=== PATIENT | male | born 1980 | race Caucasian/White ===

== ENCOUNTER 2017-02-25 17:42 | Emergency (ER) | payer SELFPAY ==
[2017-02-25 18:23] VITALS: BP 117/84
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
== END 2017-02-25 20:21 | disposition home or self-care (01) ==
LOC: ED 17:42
DX: T14.8 Other injury of unspecified body region (principal); W57.XXXA Bitten or stung by nonvenomous insect and other nonvenomous arthropods, initial encounter; Y92.9 Unspecified place or not applicable
CPT/HCPCS: 99281

== ENCOUNTER 2017-03-07 14:25 | Emergency (ER) | payer SELFPAY ==
[2017-03-07] MEDS ORDERED: Ketorolac INJ* 30 MG/ML 1 ML VIAL IM ONE (15:21)
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
--- NOTE | 2017-03-07 16:22 | RAD ---
INDICATION: Left shoulder pain COMPARISON: None. TECHNIQUE: 4 views of the left shoulder were obtained. FINDINGS: The adequately corticated bones are in normal alignment. Joint spaces appear maintained. No fracture, dislocation or focal bony abnormality is seen. IMPRESSION: Normal radiograph of the left shoulder. If the patient's symptoms persist, follow-up imaging is recommended.
--- NOTE | 2017-03-07 16:23 | RAD ---
INDICATION: Low back pain after a fall COMPARISON: CT abdomen and pelvis September 01, 2014 TECHNIQUE: 5 views of the lumbar spine were obtained. FINDINGS: The vertebra are in normal alignment. No fracture is seen. Disc spaces appear maintained. . IMPRESSION: No evidence of fracture or subluxation.
[2017-03-07] MEDS ORDERED: HYDROcodone/ACETAMIN 5-325 MG* 1 TAB PO ONE (16:34)
[2017-03-07 16:53] VITALS: BP 111/71
== END 2017-03-07 16:45 | disposition home or self-care (01) ==
LOC: UCEAST 14:25
DX: G89.29 Other chronic pain (principal); M25.512 Pain in left shoulder; S39.012A Strain of muscle, fascia and tendon of lower back, initial encounter; W18.30XA Fall on same level, unspecified, initial encounter; Y93.9 Activity, unspecified; Y92.009 Unspecified place in unspecified non-institutional (private) residence as the place of occurrence of the external cause; Y99.9 Unspecified external cause status; M79.1 Myalgia; R03.0 Elevated blood-pressure reading, without diagnosis of hypertension; Z72.0 Tobacco use
CPT/HCPCS: 72110; 90471; 96372; 99212; G0463; J1885

== ENCOUNTER 2017-04-08 18:51 | Emergency (ER) | payer OTHER ==
[2017-04-08] MEDS ORDERED: Ondansetron INJ* 2 MG/ML VIAL IV ONE ×2 (19:45→22:17)
[2017-04-08] MEDS ORDERED: HYDROmorphone* 1 MG/ML 1 ML SYR IV ONE ×2 (19:45→22:17)
[2017-04-08] MEDS ORDERED: NS 0.9% 1000 ML* 1,000 ML IV ONE (19:45)
[2017-04-08] MEDS: Ketorolac INJ* 30 MG/ML 1 ML VIAL IV ONE ×2 (19:53→20:06)
[2017-04-08 20:09] LABS: Hematocrit 43 % (42-52); Hemoglobin 14.6 g/dl (14.0-18.0); Mean Corpuscular HGB Conc 34 g/dl (31-36); Mean Corpuscular Hemoglobin 33 pg (27-31); Mean Corpuscular Volume 98 fL (80-94); Mean Platelet Volume 9 um3 (7.4-10.4); Red Blood Count 4.41 10^6/ul (4.0-5.4); Red Cell Distribution Width 13 % (10.5-15); White Blood Count 19.9 10^3/ul (3.5-10.8)
[2017-04-08 20:24] LABS: Albumin 3.8 g/dL (3.2-5.2); BUN/Creatinine Ratio 16.3 (8-20); Calcium 8.4 mg/dL (8.6-10.3); EGFR African American 112.6 (>60); EGFR Non-African American 87.6 (>60); Globulin 2.5 g/dL (2-4); Potassium 4.1 mmol/L (3.5-5.0); Total Bilirubin 0.4 mg/dL (0.2-1.0); Total Protein 6.3 g/dL (6.4-8.9)
[2017-04-08] MEDS ORDERED: Iohexol 300* (CONTRAST) 10 ML SDV IV ONE (20:33)
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
[2017-04-08 22:17] LABS: Urine Bilirubin Negative (Negative); Urine Glucose Negative (Negative); Urine Nitrite Negative (Negative)
[2017-04-08] MEDS ORDERED: HYDROcodone/ACETAMIN 5-325 MG* 1 TAB PO ONE (22:17)
[2017-04-08 22:42] VITALS: BP 129/87
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
== END 2017-04-08 22:46 | disposition home or self-care (01) ==
LOC: ED 18:51
DX: S20.219A Contusion of unspecified front wall of thorax, initial encounter (principal); S20.319A Abrasion of unspecified front wall of thorax, initial encounter; S43.102A Unspecified dislocation of left acromioclavicular joint, initial encounter; V17.0XXA Pedal cycle driver injured in collision with fixed or stationary object in nontraffic accident, initial encounter; Y93.55 Activity, bike riding; Y92.828 Other wilderness area as the place of occurrence of the external cause; R42 Dizziness and giddiness; Z88.0 Allergy status to penicillin; F17.210 Nicotine dependence, cigarettes, uncomplicated
CPT/HCPCS: 36415; 70450; 71260; 72125; 72128; 74177; 80053; 81003; 85025; 96361; 96374; 96375; 96376; 99285; J1170; J1885; J2405; Q9967

== ENCOUNTER 2018-04-27 01:36 | Emergency (ER) | payer MEDICAID ==
[2018-04-27] MEDS ORDERED: Morphine VIAL* 4 MG/ML VIAL (1 ml vial) IV ONE (01:37)
[2018-04-27] MEDS ORDERED: Morphine VIAL* 10 MG/ML 1 ML VIAL ONE (01:44)
[2018-04-27 02:01] LABS: ABS Basophils 0.1 10^3/ul (0-0.2); ABS Eosinophils 0.4 10^3/ul (0-0.6); ABS Lymphocytes 2.7 10^3/ul (1.0-4.8); ABS Monocytes 0.9 10^3/ul (0-0.8); ABS Neutrophils 8.3 10^3/ul (1.5-7.7); ABS Nucleated RBC 0 10^3/ul; Hematocrit 40 % (42-52); Hemoglobin 13.8 g/dl (14.0-18.0); Mean Corpuscular HGB Conc 34 g/dl (31-36); Mean Corpuscular Hemoglobin 33 pg (27-31); Mean Corpuscular Volume 97 fL (80-94); Mean Platelet Volume 7.8 um3 (7.4-10.4); Nucleated Red Blood Cells % 0.1; Platelet Count 263 10^3/ul (150-450); Red Blood Count 4.13 10^6/ul (4.00-5.40); Red Cell Distribution Width 13 % (10.5-15); White Blood Count 12.4 10^3/ul (3.5-10.8)
[2018-04-27 02:24] LABS: EGFR Non-African American 79.5 (>60)
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
--- NOTE | 2018-04-27 03:19 | RAD ---
EXAM: CT Abdomen and Pelvis Without Intravenous Contrast CLINICAL HISTORY: 37 years old, male; Pain; Abdominal pain; Flank; Left; Additional info: Left flank pain, suspect kidney stones TECHNIQUE: Axial computed tomography images of the abdomen and pelvis without intravenous contrast. All CT scans at this facility use at least one of these dose optimization techniques: automated exposure control; mA and/or kV adjustment per patient size (includes targeted exams where dose is matched to clinical indication); or iterative reconstruction. Coronal and sagittal reformatted images were created and reviewed. COMPARISON: C/A/P W CT CHEST/ABD/PEL W 04/08/2017 9:00 PM FINDINGS: Lung bases: There is bibasilar atelectatic change or scarring. ABDOMEN: Liver: Unremarkable. Gallbladder and bile ducts: Unremarkable. No calcified stones. No ductal dilation. Pancreas: Unremarkable. No ductal dilation. Spleen: There is borderline splenomegaly. Adrenals: Unremarkable. No mass. Kidneys and ureters: There is a 3 mm calculus in the terminal left ureter with mild left obstructive uropathy. Stomach and bowel: Unremarkable. No obstruction. No mucosal thickening. PELVIS: Appendix: No findings to suggest acute appendicitis. Bladder: Unremarkable. No stones. Reproductive: Unremarkable as visualized. ABDOMEN and PELVIS: Intraperitoneal space: Unremarkable. No free air. No significant fluid collection. Bones/joints: No acute fracture. No dislocation. Soft tissues: Unremarkable. Vasculature: Unremarkable. No abdominal aortic aneurysm. Lymph nodes: Unremarkable. No enlarged lymph nodes. IMPRESSION: There is a 3 mm calculus in the terminal left ureter with mild left obstructive uropathy.
[2018-04-27 04:26] VITALS: BP 129/67
== END 2018-04-27 04:26 | disposition home or self-care (01) ==
LOC: ED 01:36
DX: N20.9 Urinary calculus, unspecified (principal); R10.9 Unspecified abdominal pain; Z88.0 Allergy status to penicillin; F17.210 Nicotine dependence, cigarettes, uncomplicated
CPT/HCPCS: 36415; 74176; 80053; 83690; 85025; 96374; 99283; J2270